=== PATIENT | male | born 1950 | race Caucasian/White ===

== ENCOUNTER 2020-02-07 01:42 | Outpatient (CLI) | payer MEDICARE, OTHER | END 2020-02-07 01:43 | disposition critical access hospital (66) | LOC: EMS 01:42 | PROVIDERS: ATTEND Surgery | DX: S01.112A Laceration without foreign body of left eyelid and periocular area, initial encounter (principal); R07.89 Other chest pain; R41.0 Disorientation, unspecified; W18.30XA Fall on same level, unspecified, initial encounter; Y92.003 Bedroom of unspecified non-institutional (private) residence as the place of occurrence of the external cause | CPT/HCPCS: A0425; A0429 ==

== ENCOUNTER 2020-02-07 02:03 | Observation (INO) | payer MEDICARE, OTHER ==
[2020-02-07] MEDS ORDERED: SODIUM CHLORIDE 0.9% 1,000 ML IV STA (02:19)
[2020-02-07] MEDS ORDERED: TETANUS/DIPHTHERIA/PERTUSSIS 0.5 ML SYRINGE IM ONE (02:22)
[2020-02-07] MEDS ORDERED: THIAMINE 100 MG TABLET PO STA (02:22)
--- NOTE | 2020-02-07 03:07 | ED Physician Documentation ---
PD HPI ALTERED MENTAL STATUS - Stated complaint Stated Complaint: SYNCOPE - Chief complaint Chief Complaint: Trauma Hd/Nk - History obtained from History obtained from: Patient, EMS - Additional information Additional information: 69-year-old man with past medical history of lung ca s/p R upper lobectomy and partial rib excision, high blood pressure, cholesterol, alcoholism presents with syncopal episode this evening. Patient was drinking alcohol and was last seen normal around 10PM when he went to bed. found him on the ground face down next to a glass of water.Patient states that he felt lightheaded and then thinks he passed out falling onto face. He is not on any blood thinners or anticoagulation. Patient has been behaving normally earlier in the day. Per EMS he is repeating himself and seems mildly confused although he is AO x3 in the ED. Patient complains of mild left-sided nonradiating aching chest pain. Review of Systems Ten Systems: 10 systems reviewed and negative Cardiac: reports: Chest pain / pressure Respiratory: reports: Dyspnea (chronic dyspnea) Skin: reports: Laceration (s) Neurologic: reports: Generalized weakness, Syncope. denies: Focal weakness PD PAST MEDICAL HISTORY - Present Medications Home Medications: Ambulatory Orders Medication Instructions Recorded Confirmed Home Medications Unobtainable 02/07/20 02/07/20 [HOME MEDICATIONS UNOBTAINABLE] - Allergies Allergies/Adverse Reactions: Allergies Allergy/AdvReac Type Severity Reaction Status Date / Time Unable to Assess Allergy Verified 02/07/20 03:12 PD ED PE NORMAL - Vitals Vital signs reviewed: Yes - General General: Alert and oriented X 3 (clinically intoxicated) - HEENT HEENT: Other (scattered facial abrasions. BL dried blood in nares without nasal septal hematoma. dentition intact. ) - Neck Neck: No bony TTP - Cardiac Cardiac: RRR - Respiratory Respiratory: No respiratory distress, Clear bilaterally - Abdomen Abdomen: Non tender, Non distended - Male Male : Deferred - Rectal Rectal: Deferred - Back Back: No spinal TTP - Derm Derm: Other (3cm lac to L browline) - Extremities Extremities: No deformity - Neuro Neuro: Alert and oriented X 3 - Psych Psych: Normal mood, Normal affect, Other (clinically intoxicated) Results - Vitals Vitals: Vital Signs - 24 hr 02/07/20 02/07/20 02/07/20 02:03 02:30 03:30 Temperature 36.4 C L 36.7 C Heart Rate 68 62 67 Respiratory 18 20 20 Rate Blood Pressure 146/83 H 141/85 H 136/81 H O2 Saturation 95 96 96 02/07/20 02/07/20 02/07/20 04:03 06:42 06:44 Temperature 36.4 C L 37.1 C Heart Rate 66 69 68 Respiratory 21 20 Rate Blood Pressure 136/81 H 130/71 O2 Saturation 97 98 93 02/07/20 02/07/20 06:45 06:46 Temperature Heart Rate 67 66 Respiratory 20 Rate Blood Pressure 136/81 H O2 Saturation 95 97 Oxygen O2 Source Room air - EKG (time done) 0209 Rate: Rate (enter#) (65) Rhythm: NSR Intervals: LBBB (old lbbb per patient and ems report) 0445 Rate: Rate (enter#) (65) Rhythm: NSR Compare to prior EKG: Unchanged from prior EKG (unchanged from ekg earlier this mronig) - Labs Labs: Laboratory Tests 02/07/20 02/07/20 02/07/20 04:10 04:10 04:10 WBC 4.3 L RBC 4.08 L Hgb 13.5 L Hct 37.7 L MCV 92.4 MCH 33.1 H MCHC 35.8 RDW 11.5 L Plt Count 210 MPV 9.2 Neut # (Auto) 2.9 Lymph # (Auto) 1.0 L [place] # (Auto) 0.4 Eos # (Auto) 0.0 Baso # (Auto) 0.0 Absolute Nucleated RBC 0.00 Nucleated RBC % 0.0 Sodium 135 Potassium 3.3 L Chloride 101 Carbon Dioxide 22 Anion Gap 12.0 BUN 18 Creatinine 1.1 Estimated GFR (MDRD) 66 L Glucose 140 H Calcium 8.5 Total Bilirubin 0.8 AST 66 H ALT 67 H Alkaline Phosphatase 62 Troponin I High Sens 7.2 Total Protein 7.2 Albumin 4.3 Globulin 2.9 Albumin/Globulin Ratio 1.5 Lipase 43 Ethyl Alcohol 250.6 SARS-CoV-2 (PCR) 02/07/20 04:37 WBC RBC Hgb Hct MCV MCH MCHC RDW Plt Count MPV Neut # (Auto) Lymph # (Auto) [place] # (Auto) Eos # (Auto) Baso # (Auto) Absolute Nucleated RBC Nucleated RBC % Sodium Potassium Chloride Carbon Dioxide Anion Gap BUN Creatinine Estimated GFR (MDRD) Glucose Calcium Total Bilirubin AST ALT Alkaline Phosphatase Troponin I High Sens Total Protein Albumin Globulin Albumin/Globulin Ratio Lipase Ethyl Alcohol SARS-CoV-2 (PCR) NOT DETECTED PD MEDICAL DECISION MAKING - ED course Complexity details: d/w patient, d/w family ED course: 69-year-old man with past medical history of right lobectomy Presents status post syncopal episode this past evening without preceding symptoms, Found to have no acute changes on EKG, nonfocal lab work, traumatic work-up with isolated nasal bone fracture. On clinical reexamination he has subcutaneous emphysema on the left anterior chest wall as well as tenderness along the lower rib. plan to admit for pain control, cardiac monitoring, and echo on saturday. discussed with patient, , and hospitalist. Note: hospitalist requested we contact cardiology at [facility] where patient has previously followed up. He had holter monitoring recently showing frequent pvcs and old lbbb. per operations specialists toby maker Dr. Robert, patient may benefit from a holter monitor. this may possibly be done inpatient or outpatient. discussed possibility of transfer with patient and he refused, stating he would prefer to be monitored here and follow up outpatient for cardiology eval. Departure - Departure Disposition: 66 [facility] DC/Xfer Clinical Impression: Syncope and collapse, Nasal bone fracture, Chest pain
[2020-02-07] MEDS ORDERED: IOVERSOL 320 100 ML VIAL IVP ONE ×2 (03:25→03:35)
[2020-02-07] MEDS: BUFFERED LIDOCAINE 10 ML SYRINGE SUBQ STA ×2 (03:45→06:38)
[2020-02-07] MEDS ORDERED: MORPHINE 2 MG/ML CARPUJECT IVP STA ×3 (03:50→05:50)
[2020-02-07 04:19] LABS: BASOPHILS % (AUTO) 0.2 %; EOSINOPHILS % (AUTO) 0.9 %; HGB - HEMOGLOBIN 13.5 g/dL (14.0-18.0); LYMPHOCYTES % (AUTO) 22.3 %; MEAN CORPUSCULAR HEMOGLOBIN 33.1 pg (27.0-31.0); MEAN CORPUSCULAR HGB CONC 35.8 g/dL (32.0-36.0); MEAN CORPUSCULAR VOLUME 92.4 fL (80.0-94.0); MEAN PLATELET VOLUME 9.2 fL (7.4-11.4); MONOCYTES # (AUTO) 0.4 10^3/uL (0.0-1.0); MONOCYTES % (AUTO) 9.2 %; NEUTROPHILS # (AUTO) 2.9 10^3/uL (1.5-6.6); NEUTROPHILS % (AUTO) 66.9 %; PLT - PLATELET COUNT 210 10^3/uL (130-450); RED BLOOD COUNT 4.08 10^6/uL (4.70-6.10); RED CELL DISTRIBUTION WIDTH 11.5 % (12.0-15.0); WHITE BLOOD COUNT 4.3 x10^3/uL (4.8-10.8)
[2020-02-07 04:36] LABS: ALBUMIN 4.3 g/dL (3.2-5.5); ALBUMIN/GLOBULIN RATIO 1.5 (1.0-2.2); BILIRUBIN,TOTAL 0.8 mg/dL (0.2-1.0); CALCIUM 8.5 mg/dL (8.5-10.3); CREATININE 1.1 mg/dL (0.6-1.2); TOTAL PROTEIN 7.2 g/dL (6.7-8.2)
[2020-02-07] MEDS ORDERED: ASPIRIN 325 MG TABLET PO STA (04:44)
[2020-02-07] MEDS: HYDROmorphone 1 MG/ML CARPUJECT IVP STA ×2 (05:19→05:55)
--- NOTE | 2020-02-07 07:47 | CT Report ---
PROCEDURE: HEAD WO INDICATIONS: Head trauma, mod-severe TECHNIQUE: Noncontrast 4.5 mm thick angled axial sections acquired from the foramen magnum to the vertex. For r adiation dose reduction, the following was used: automated exposure control, adjustment of mA and/or kV according to patient size. COMPARISON: None. FINDINGS: Image quality: Excellent. CSF spaces: Basal cisterns are patent. No extra-axial fluid collections. Ventricles are normal in size and shape. Brain: No midline shift. No intracranial masses or hemorrhage. [place]-white matter interface is norm al. Skull and face: Calvarium is intact, without suspicious lesions. Subtle nondisplaced lateral left ma xillary sinus wall fracture. There is layering hemorrhagic products within the left maxillary sinus. Sinuses: Layering fluid in the left maxillary sinus with likely hemorrhagic component. Remainder of the visualized paranasal sinuses and mastoids are clear. IMPRESSION: 1. CT head without acute intracranial abnormalities. 2. Nondisplaced left maxillary sinus lateral wall fracture with layering hemorrhagic fluid in the lef t maxillary sinus. No significant discrepancy with initial interpretation by overnight radiologist. Reviewed by: Flavio Story MD on 02/07/2020 6:46 AM [facility] Approved by: Flavio Story MD on 02/07/2020 6:46 AM [facility] [place] Station ID: [id number]
--- NOTE | 2020-02-07 07:49 | CT Report ---
PROCEDURE: MAXILLOFACIAL WO INDICATIONS: Facial trauma TECHNIQUE: Noncontrast 1.5 mm thick axial images acquired from the mandible through the frontal sinuses, with co boyd and sagittal reformatting. For radiation dose reduction, the following was used: automated ex posure control, adjustment of mA and/or kV according to patient size. COMPARISON: None. FINDINGS: Image quality: Excellent. Bones and teeth: Orbital orr are intact. Nondisplaced lateral fracture of the left maxillary sinus . Remainder of the visualized paranasal sinuses appear intact without acute fracture. Nasal bones and septum are intact. Visualized portions of the mandible demonstrate no fractures or subluxation. Zy gomatic arches are intact. Pterygoid plates are intact. Visualized portions of the skull base and a uditory canals are intact. Sinuses: Layering fluid is noted in the left maxillary sinus. Remainder of the visualized paranasal s inuses are aerated, without fluid levels, mucosal thickening, or mucoceles. Mastoid air cells are ae rated. Soft tissues: Mild left facial soft tissue swelling. No masses, or fluid collections. No enlarged l ymph nodes. No soft tissue lacerations or debris. Orbits and globes appear intact. Vascular: Visualized vascular structures appear normal in the absence of contrast. Bony vascular fo ramina and canals are intact. IMPRESSION: Nondisplaced left maxillary sinus lateral wall fracture. No significant discrepancy with initial interpretation by overnight radiologist. Reviewed by: Flavio Story MD on 02/07/2020 6:48 AM [facility] Approved by: Flavio Story MD on 02/07/2020 6:48 AM [facility] Station ID: [id number]
--- NOTE | 2020-02-07 07:53 | CT Report ---
PROCEDURE: CERVICAL SPINE WO INDICATIONS: Neck trauma, midline tenderness TECHNIQUE: Noncontrast 3 mm thick sections acquired from the skull base to the T4 level. Sagittal and coronal r eformats were then constructed. For radiation dose reduction, the following was used: automated exp osure control, adjustment of mA and/or kV according to patient size. COMPARISON: None. FINDINGS: Image quality: Study is degraded by patient motion artifact. Bones: No acute fractures or dislocations. No acute compression fractures of the vertebral bodies. M oderate multilevel cervical spondylosis throughout the imaged spine most pronounced at C6-7 and C7-T1 . Visualized superior ribs are intact. No suspicious osseous lesions. Craniocervical junction is int act. Soft tissues: Prevertebral soft tissues are normal in thickness. No paravertebral hematomas. No ap ical pneumothoraces. IMPRESSION: Cervical spine without acute fracture or dislocation. Multilevel cervical spondylosis most pronounced at C6-7 and C7-T1. No significant discrepancy with initial interpretation by overnight radiologist. Reviewed by: Flavio Story MD on 02/07/2020 6:51 AM [facility] Approved by: Flavio Story MD on 02/07/2020 6:51 AM [facility] Station ID: [id number]
--- NOTE | 2020-02-07 07:55 | XRAY Report ---
PROCEDURE: Chest 1 View X-Ray INDICATIONS: fall TECHNIQUE: One view of the chest was acquired. COMPARISON: None FINDINGS: Surgical changes and devices: Surgical clips project near the right perihilar region. Thoracic neuros timulator leads are noted.. Lungs and pleura: No pleural effusions or pneumothorax. Lungs are clear. Mediastinum: Mediastinal contours appear normal. Heart size is normal. Bones and chest wall: No suspicious bony lesions. Overlying soft tissues appear unremarkable. IMPRESSION: Chest without acute cardiopulmonary abnormalities. No significant discrepancy with initial interpretation by overnight radiologist. Reviewed by: Flavio Story MD on 02/07/2020 6:54 AM [facility] Approved by: Flavio Story MD on 02/07/2020 6:54 AM [facility] Station ID: [id number]
--- NOTE | 2020-02-07 08:00 | HISTORY & PHYSICAL EXAMINATION ---
Chief Complaint - Chief Complaint Chief Complaint: Syncope History of Present Illness - Admitted From Admitted From:: [facility] ED - History Obtained From Records Reviewed: Yes History obtained from: Patient - History of Present Illness HPI Comment/Other: Patient is a 69-year-old male with medical history significant for coronary artery disease, hypertension, peripheral vascular disease, hyperlipidemia, GERD, restless leg syndrome and obstructive sleep apnea on BiPAP at home who presented to the ED after a syncopal episode. He was brought in by EMS after his called 911. He does not remember the incident. He denied any dizziness or lightheadedness prior to the episode. He has a left periorbital bruise as a result of his fall and a superficial laceration just above the left eye. Currently he complains of left sided pain which is musculoskeletal and reproducible. He reports worsening pain with inhalation. He denies abdominal pain, nausea, vomiting, fever or chills. Work-up in the ED showed an alcohol level of 205. The patient's troponin was normal at 7.2. In talking with the patient's she explains that the patient had been drinking before the episode. She says he was celebrating. Is unclear what the celebration was about As a result of his presentation was presented for admission for further monitoring and pain management. In talking with the patient I am informed that he sees cardiologists by name Dr. Narvaez and an coin machine supervisor by name Dr. Dao Thao in [place]. He states that he recently had an echocardiogram done in the past 1 to 2 weeks. He reports having ZIO Patch monitor. Upon reaching Dr. Robert who was covering for his cardiology service, she explained that the reading from the ZIO patch was done a month ago. The patient was not wearing a monitor at the time of his incident last night. He has never had a syncopal episode before this presentation. On further investigation it appears he had seen the coin machine supervisor because of frequent PVCs. History - Past Medical History Cardiovascular: reports: Hypertension, High cholesterol, Coronary artery disease, Peripheral Vascular Disease Respiratory: reports: COPD, Sleep apnea (On BiPAP at home) Neuro: reports: Other (Restless leg syndrome) Psych: reports: Depression, Anxiety Musculoskeletal: reports: Fibromyalgia, Chronic back pain MRSA Hx?: No Other Past Medical History: Right femoral artery stenosis, history of lung cancer with right upper lobe partial lobectomy, LBBB, - Past Surgical History Cardiovascular: reports: Cardiac catheterization Other past surgical history: History of a right partial lobectomy. Spinal cord stimulator, right ribs 5 and 6 removed, vasectomy - Family & Social History Family History Comment/Other: Patient's father had diabetes and unspecified cardiac disease. Patient's mother's history is significant for cardiac disease unspecified. Patient sister had CVA and diabetes mellitus. Patient had 2 brothers who had high blood pressure and diabetes mellitus. Living arrangement: At home Living Situation: With spouse/s.o. Social History Notes: Patient denies tobacco use. He smoked about 1-1/2 packs of cigarettes a day for 40 years. He quit in 2005. He drinks anywhere between 2-5 drinks of vodka daily. He denied illicit drug use - POLST Patient has POLST: No POLST Status: Full Code Meds/Allgy - Home Medications Home Medications: Ambulatory Orders Medication Instructions Recorded Confirmed Amlodipine Besylate [Norvasc] 10 mg PO DAILY 02/07/20 02/07/20 Aspirin [Aspirin EC] 81 mg PO DAILY 02/07/20 02/07/20 Atorvastatin Calcium 40 mg PO QPM 02/07/20 02/07/20 Azelastine HCl 1 - 2 sprays FIDENCIO BID 02/07/20 02/07/20 Cholecalciferol [Vitamin D3] 5,000 unit PO DAILY 02/07/20 02/07/20 Finasteride [Proscar] 5 mg PO DAILY 02/07/20 02/07/20 Finasteride [Proscar] 5 mg PO DAILY 02/07/20 02/07/20 Fluticasone [Flonase] 2 spray FIDENCIO DAILY 02/07/20 02/07/20 Loratadine [Claritin] 10 mg PO DAILY 02/07/20 02/07/20 Losartan Potassium [Cozaar] 100 mg PO DAILY 02/07/20 02/07/20 Metoprolol Succinate [Toprol Xl] 50 mg PO BID 02/07/20 02/07/20 Montelukast [Singulair] 10 mg PO QPM 02/07/20 02/07/20 Omeprazole Magnesium 20 mg PO QDAC 02/07/20 02/07/20 Potassium Chloride [Klor-Con 10] 10 meq PO BIDWM 02/07/20 02/07/20 Pramipexole [Mirapex] 0.25 mg PO BID 02/07/20 02/07/20 Tamsulosin [Flomax] 0.4 mg PO BID 02/07/20 02/07/20 Tiotropium Br/Olodaterol HCl 2 puffs INH DAILY 02/07/20 02/07/20 [Stiolto Respimat Inhal [place]] Torsemide 20 mg PO DAILY 02/07/20 02/07/20 guaiFENesin [Mucinex] 400 mg PO BID 02/07/20 02/07/20 - Allergies Allergies/Adverse Reactions: Allergies Allergy/AdvReac Type Severity Reaction Status Date / Time ampicillin Allergy Unknown Verified 02/07/20 11:14 hydralazine Allergy Unknown Verified 02/07/20 11:18 ketoconazole Allergy Unknown Verified 02/07/20 11:18 modafinil Allergy Unknown Verified 02/07/20 11:18 niacin Allergy Unknown Verified 02/07/20 11:18 Penicillins Allergy Unknown Verified 02/07/20 11:14 sulfamethoxazole Allergy Unknown Verified 02/07/20 11:18 [From Sulfamethoxazole-Trimethoprim] trimethoprim Allergy Unknown Verified 02/07/20 11:18 [From Sulfamethoxazole-Trimethoprim] SHERIDAN Inhibitors AdvReac Respiratory Verified 02/07/20 11:18 Review of Systems - Constitutional Constitutional: denies: Fatigue, Fever, Chills, Diaphoresis, Night sweats - Eyes Eyes: reports: Pain, Other (Left periorbital bruise). denies: Field loss, Vision loss, Dipolpia - Ears, Nose & Throat Ears, Nose & Throat: denies: Ear pain, Vertigo, Nasal pain - Cardiovascular Cariovascular: reports: Syncope. denies: Irregular heart rate, Palpitations, Chest pain, Edema, Lightheadedness - Respiratory Respiratory: denies: Cough, Wheezing, SOB at rest, SOB with exertion - Gastrointestinal Gastrointestinal: denies: Abdominal pain, Abdominal distention, Constipation, Diarrhea, Nausea, Vomiting - Genitourinary Genitourinary: denies: Dysuria, Frequency, Urgency, Hematuria - Musculoskeletal Musculoskeletal: denies: Muscle pain, Back pain - Integumentary Integumentary: denies: Rash, Pruritis - Neurological Neurological: denies: General weakness, Focal weakness, Headache, Dizziness - Psychiatric Psychiatric: denies: Depression, Anxiety - Endocrine Endocrine: denies: Polyuria, Polydypsia - Hematologic/Lymphatic Hematologic/Lymphatic: denies: Anemia, Bruising, Petechiae Prior Level of Functionality: Patient is independent of activities of daily living. Exam - Vital Signs Vital Signs: Vital Signs x48h Temp Pulse Resp BP Pulse Ox 02/07/20 07:00 37.3 C 74 17 122/66 94 02/07/20 06:46 66 20 136/81 H 97 02/07/20 06:45 67 95 02/07/20 06:44 68 93 02/07/20 06:42 37.1 C 69 20 130/71 98 02/07/20 04:03 36.4 C L 66 21 136/81 H 97 02/07/20 03:30 67 20 136/81 H 96 02/07/20 02:30 36.7 C 62 20 141/85 H 96 02/07/20 02:03 36.4 C L 68 18 146/83 H 95 - Physical Exam General Appearance: positive: Moderate distress Eyes Bilateral: positive: PERRL, EOMI, Other (LSuperficialaceration just superior to patient's left eye. Patient has left periorbital bruising.) ENT: positive: Pharynx nml. negative: No signs of dehydration Neck: negative: No JVD, Trachea midline Respiratory: positive: Other (Coarse breath sounds. Pain with inspiration.) Cardiovascular: positive: Regular rate & rhythm, No murmur Abdomen: positive: Non-tender, No organomegaly, Nml bowel sounds, No distention. negative: Guarding, Rebound Skin: positive: Color nml, No rash, Warm, Dry Extremities: positive: Non-tender, Full ROM, Pedal edema (Trace to +1) Neurologic/Psychiatric: positive: Oriented x3, Mood/affect nml Conclusion/Plan - Problem List (1) Syncope and collapse Conclusion/Plan: Etiology undetermined however suspect a cardiac cause Patient supposedly has a Zio patch. He also sees electrophysiology and general cardiology services at [place]. The patient is currently on telemetry. He is not experiencing any typical cardiac pain or dyspnea Patient reports having an echocardiogram done in the past 1 to 2 weeks. I discussed with Dr. Robert who is covering for the cardiology service [place] [facility] [place] She explained that the patient was on the Zio patch for 1 week a month ago and was not wearing one yesterday when he had the syncopal episode. She was also agreeable to fax out any at the current echocardiogram results. Dr. Robert had earlier recommended that the patient be transferred to [facility] from the ED. However after discussion with the patient and explaining the importance of him being transferred, he expressed understanding but declined to be transferred. He kept repeating that he will address this the following day. (2) Musculoskeletal pain Conclusion/Plan: Of the left 5-7 rib area. There was significant crepitus felt in this area however imaging which has been a CT so far has not shown any fracture. We will repeat imaging with focused x-ray of the ribs. We will continue pain management with morphine and oral Toradol. Charles declined Dilaudid because he explains that he had an unspecified reaction to it. Incentive spirometer ordered. (3) Coronary artery disease Conclusion/Plan: Patient is on Metroprolol XL 50 mg daily, baby aspirin, atorvastatin 40 mg daily and losartan. (4) Hypertension Conclusion/Plan: Patient is on metoprolol, losartan and torsemide. (5) Hyperlipidemia Conclusion/Plan: On atorvastatin 40 mg p.o. daily. (6) BPH (benign prostatic hyperplasia) Conclusion/Plan: On tamsulosin 0.4 mg p.o. twice daily And finasteride 5 mg p.o. daily (7) COPD (chronic obstructive pulmonary disease) Conclusion/Plan: Not in exacerbation. Will order breathing treatment if and when indicated - Lab Results Fish Bones: 02/07/20 04:10 02/07/20 04:10 Core Measures - Anticipated LOS I expect patient to be DC'd or transferred within 96 hours.: Yes - DVT/VTE - Prophylaxis VTE/DVT Device ordered at admit?: Yes
--- NOTE | 2020-02-07 08:02 | CT Report ---
PROCEDURE: CHEST W INDICATIONS: Chest trauma, penetrating CONTRAST: IV CONTRAST: Optiray 320 ml: 100 PO CONTRAST: *NO PO CONTRAST TECHNIQUE: After the administration of intravenous contrast, 5 mm thick sections acquired from the pulmonary api billy to the posterior costophrenic angles. 7 mm thick coronal MIP reformats were acquired. For radia tion dose reduction, the following was used: automated exposure control, adjustment of mA and/or kV according to patient size. COMPARISON: None. FINDINGS: Image quality: Excellent. Lungs and pleura: Status post right upper lobectomy. No acute air space opacities. Mild bibasilar at electasis. Mild pulmonary emphysematous changes. No pleural effusions or pneumothorax. Central and p eripheral airways are patent and normal in caliber. Mediastinum: Heart size is normal. Atherosclerotic calcifications of the coronary arteries are prese nt. No pericardial effusion. No mediastinal or hilar adenopathy by size criteria. Thoracic aorta an d central pulmonary arteries are normal in size. Esophagus is normal in caliber. No hiatal hernia. Bones and chest wall: No suspicious bony lesions. No acute vertebral body compression fractures. N o axillary or supraclavicular adenopathy by size criteria. Thyroid gland is unremarkable. Minimal b ilateral gynecomastia. Neurostimulator lead extend up to the level of T5. Abdomen: Hepatic steatosis. Visualized upper abdominal solid organs appear normal. Upper abdominal bowel loops are normal in caliber. IMPRESSION: 1. CT chest without acute traumatic injuries. No acute cardiopulmonary abnormalities. 2. No acute fractures identified. Other chronic findings as above. No significant discrepancy with initial interpretation by overnight radiologist. Reviewed by: Flavio Story MD on 02/07/2020 7:01 AM [facility] Approved by: Flavio Story MD on 02/07/2020 7:01 AM [facility] Station ID: [id number]
--- NOTE | 2020-02-07 08:07 | CT Report ---
PROCEDURE: Abdomen/Pelvis W INDICATIONS: Abdominal trauma, blunt CONTRAST: IV CONTRAST: Optiray 320 ml: 100 PO CONTRAST: *NO PO CONTRAST TECHNIQUE: After the administration of weight appropriate dose of intravenous contrast, 5 mm thick sections acqu ired from the diaphragms to the symphysis. 5 mm thick coronal and sagittal reformats were acquired. For radiation dose reduction, the following was used: automated exposure control, adjustment of mA and/or kV according to patient size. COMPARISON: None. FINDINGS: Image quality: Excellent. ABDOMEN: Lung bases: Lung bases are clear. Heart size is normal. Solid organs: Liver and spleen are normal in size and enhancement. Hepatic steatosis. Gallbladder is unremarkable. Biliary system is non dilated. Pancreas enhances normally. No adrenal nodules. Kid neys demonstrate normal size and enhancement, without hydronephrosis. Peritoneum and bowel: Bowel loops demonstrate normal wall thickness and caliber. No free fluid or a ir. Normal appendix. Nodes and vessels: No retroperitoneal or mesenteric adenopathy by size criteria. Aorta and inferior vena cava are normal in size. Atherosclerotic calcifications of the abdominal aorta are present. Miscellaneous: No ventral hernias. PELVIS: Genitourinary: Bladder wall thickness is normal. Urinary bladder is distended. Large left hydrocele . Miscellaneous: No inguinal hernias or adenopathy. Bones: No suspicious bony lesions. No acute vertebral body compression fractures. IMPRESSION: 1. CT abdomen and pelvis without acute traumatic injury to the solid or hollow organs. 2. Other chronic findings as above. No significant discrepancy with initial interpretation by overnight radiologist. Reviewed by: Flavio Story MD on 02/07/2020 7:06 AM [facility] Approved by: Flavio Story MD on 02/07/2020 7:06 AM [facility] Station ID: [id number]
--- NOTE | 2020-02-07 08:08 | XRAY Report ---
PROCEDURE: Pelvis 1 View INDICATIONS: fall TECHNIQUE: 3 view(s) of the pelvis acquired. COMPARISON: None. FINDINGS: Bones: No fractures or dislocations. No suspicious bony lesions. Soft tissues: Visualized bowel gas pattern is normal. No suspicious soft tissue calcifications. Bozena rostimulator device projects over the left lower abdomen. IMPRESSION: Pelvis without acute radiographic abnormalities. No significant discrepancy with initial interpretation by overnight radiologist. Reviewed by: Flavio Story MD on 02/07/2020 7:07 AM [facility] Approved by: Flavio Story MD on 02/07/2020 7:07 AM [facility] Station ID: [id number]
--- NOTE | 2020-02-07 09:18 | XRAY Report ---
PROCEDURE: Ribs 2 View LT INDICATIONS: Fall L subcut emphysema TECHNIQUE: 4 views of the left ribs were acquired. COMPARISON: CT chest from earlier same day FINDINGS: Surgical changes and devices: None. Bones and chest wall: No fractures or dislocations. No suspicious bony lesions. Overlying soft tis sues appear unremarkable. No radiographic evidence for subcutaneous emphysema. Lungs and pleura: The visualized lung appears clear. No pleural effusions or pneumothorax are visib le. IMPRESSION: No acute rib fractures identified. No evidence for subcutaneous emphysema. Reviewed by: Flavio Story MD on 02/07/2020 8:16 AM [facility] Approved by: Flavio Story MD on 02/07/2020 8:16 AM [facility] Station ID: [id number]
--- NOTE | 2020-02-07 09:22 | PHARMACY PROGRESS NOTE ---
- Best Possible Medication History Admit Date and Time: 02/07/20 0755 Processed by: Pharmacy Medication History completed: Yes Patient Interview: Pt unable to participate Secondary Source(s): Pharmacy records, Insurance records As the person ultimately responsible for medication therapy, providers are able to order a medication from an existing home medication list in [facility] via the "Reconcile Routine" prior to Confirmation of that medication by legal support analyst. Such practice is discouraged except when the physician, in their clinical judgment, deems that a medical need exists for a medication without regard to previous use.
--- NOTE | 2020-02-07 10:26 | CONSULTATION NOTE ---
Referring Provider Name of Referring Provider:: Ting Richter Consult Date: 02/07/20 Chief Complaint - Chief Complaint Chief Complaint: Fall with left eye laceration and ecchymosis and left chest wall pain History of Present Illness - Admitted From Admitted From:: ED - History Obtained From Records Reviewed: Provider's notes History obtained from: Providers and patient Exam Limitations: None - History of Present Illness HPI Comment/Other: ajay is a 69-year-old male with medical history significant for coronary artery disease, hypertension, peripheral vascular disease, hyperlipidemia, GERD, restless leg syndrome and obstructive sleep apnea on BiPAP at home who presented to the ED after a syncopal episode. He was brought in by EMS after his called 911. He does not remember the incident. He denied any dizziness or lightheadedness prior to the episode. He has a left periorbital bruise as a result of his fall and a superficial laceration just above the left eye. Currently he complains of left sided pain which is musculoskeletal and reproduc ible. He reports worsening pain with inhalation. He denies abdominal pain, nausea, vomiting, fever or chills. Work-up in the ED showed an alcohol level of 205. The patient's troponin was normal at 7.2. In talking with the patient's she explains that the patient had been drinking before the episode and also that he was significantly upset. She seems to allude to the fact that it may have been related with recent elections. As a result of his presentation was presented for admission for further monitoring and pain management. The patient is complaining of left sided rib pain. He says he always has right sided rib pain that is associated with his spinal cord stimulator but the left sided rib pain is new. As he doesn't remember the incident, he doesn't know if he hit his left chest during the fall. Pain is described as sharp with deep inspiration and otherwise just a constant ache. History - Past Medical History Cardiovascular: reports: Hypertension, High cholesterol, Peripheral Vascular Disease Respiratory: reports: Sleep apnea (On BiPAP at home) Neuro: reports: Other (Restless leg syndrome) MRSA Hx?: No Other Past Medical History: Right femoral artery stenosis, history of lung cancer with right upper lobe partial lobectomy, LBBB, - Past Surgical History Other past surgical history: History of a right partial lobectomy. Spinal cord stimulator, right ribs 5 and 6 removed, vasectomy - Family & Social History Family History Comment/Other: Patient's father had diabetes and unspecified cardiac disease. Patient's mother's history is significant for cardiac disease unspecified. Patient sister had CVA and diabetes mellitus. Patient had 2 brothers who had high blood pressure and diabetes mellitus. Living arrangement: At home Living Situation: With spouse/s.o. Social History Notes: Patient denies tobacco use. He drinks anywhere between 2- 5 drinks of vodka daily. He denied illicit drug use - POLST Patient has POLST: No POLST Status: Full Code Meds/Allgy - Home Medications Home Medications: Ambulatory Orders Medication Instructions Recorded Confirmed Amlodipine Besylate [Norvasc] 10 mg PO DAILY 02/07/20 02/07/20 Atorvastatin Calcium 40 mg PO QPM 02/07/20 02/07/20 Finasteride [Proscar] 5 mg PO DAILY 02/07/20 02/07/20 Fluticasone [Flonase] 2 spray FIDENCIO DAILY 02/07/20 02/07/20 Loratadine [Claritin] 10 mg PO DAILY 02/07/20 02/07/20 Losartan Potassium [Cozaar] 100 mg PO DAILY 02/07/20 02/07/20 Metoprolol Succinate [Toprol Xl] 50 mg PO BID 02/07/20 02/07/20 Montelukast [Singulair] 10 mg PO QPM 02/07/20 02/07/20 Omeprazole Magnesium 20 mg PO QDAC 02/07/20 02/07/20 Potassium Chloride [Klor-Con 10] 10 meq PO BIDWM 02/07/20 02/07/20 Pramipexole [Mirapex] 0.5 mg PO QPM 02/07/20 02/07/20 Tamsulosin [Flomax] 0.4 mg PO BID 02/07/20 02/07/20 Torsemide 20 mg PO DAILY 02/07/20 02/07/20 - Allergies Allergies/Adverse Reactions: Allergies Allergy/AdvReac Type Severity Reaction Status Date / Time Unable to Assess Allergy Verified 02/07/20 03:12 Review of Systems - Constitutional Constitutional: reports: Fatigue, Fever - Eyes Eyes: reports: Pain (Left eye and eye brow) - Ears, Nose & Throat Ears, Nose & Throat: denies: Ear pain, Hearing loss, Tinnitus, Vertigo - Cardiovascular Cariovascular: denies: Chest pain, Lightheadedness - Respiratory Respiratory: denies: Cough, Sputum production, Wheezing - Gastrointestinal Gastrointestinal: denies: Abdominal pain, Abdominal distention, Constipation, Diarrhea, Change in bowel habits, Black stools, Bloody stools, Nausea, Vomiting - Musculoskeletal Musculoskeletal: reports: Muscle pain, Back pain, Joint pain - Integumentary Integumentary: denies: Rash, Lesions - Neurological Neurological: denies: General weakness, Focal weakness - Psychiatric Psychiatric: reports: Anxiety (Upset about recent elections) Exam - Vital Signs Reviewed Vital Signs: Yes Vital Signs: Vital Signs x48h Temp Pulse Pulse Resp BP BP Pulse Ox 02/07/20 08:56 37.0 C 74 20 150/74 H 94 02/07/20 07:00 37.3 C 74 17 122/66 94 02/07/20 06:46 66 20 136/81 H 97 02/07/20 06:45 67 95 02/07/20 06:44 68 93 02/07/20 06:42 37.1 C 69 20 130/71 98 02/07/20 04:03 36.4 C L 66 21 136/81 H 97 02/07/20 03:30 67 20 136/81 H 96 02/07/20 02:30 36.7 C 62 20 141/85 H 96 - Physical Exam General Appearance: positive: No acute distress, Alert Eyes Bilateral: positive: Conjunctivae nml, No scleral icterus, Other (Ecchymosis around the left orbit.) ENT: positive: ENT inspection nml Neck: positive: Nml inspection Respiratory: positive: Breath sounds nml, Other (Tender to palpation over the left anterior rib margin. No visible bruising. No crepitance or popping with deep inspiration.) Cardiovascular: positive: Regular rate & rhythm Peripheral Pulses: positive: 0 Abdomen: positive: Tenderness (Moderated left upper quadrant tenderness to palpation but without rebound). negative: Guarding, Rebound Back: positive: CVA tenderness (R) (Patient reports this is normal for him), CVA tenderness (L) Skin: positive: Laceration (cm) (left eyebrow - small and approximated with steri strips) Extremities: positive: Non-tender Neurologic/Psychiatric: positive: Oriented x3 Conclusion and Plan - Lab Results Laboratory Results 02/07/20 04:37: SARS-CoV-2 (PCR) NOT DETECTED 02/07/20 04:10: Troponin I High Sens 7.2 02/07/20 04:10: Sodium 135, Potassium 3.3 L, Chloride 101, Carbon Dioxide 22, Anion Gap 12.0, BUN 18, Creatinine 1.1, Estimated GFR (MDRD) 66 L, Glucose 140 H, Calcium 8.5, Total Bilirubin 0.8, AST 66 H, ALT 67 H, Alkaline Phosphatase 62, Total Protein 7.2, Albumin 4.3, Globulin 2.9, Albumin/Globulin Ratio 1.5, Lipase 43, Ethyl Alcohol 250.6 02/07/20 04:10: WBC 4.3 L, RBC 4.08 L, Hgb 13.5 L, Hct 37.7 L, MCV 92.4, MCH 33.1 H, MCHC 35.8, RDW 11.5 L, Plt Count 210, MPV 9.2, Neut # (Auto) 2.9, Lymph # (Auto) 1.0 L, Bill[place] # (Auto) 0.4, Eos # (Auto) 0.0, Baso # (Auto) 0.0, Absolute Nucleated RBC 0.00, Nucleated RBC % 0.0 - Diagnostic Imaging Results Diagnostic Imaging Results: positive: Final report reviewed - Diagnosis Diagnosis: left rib hematoma - possible non displaced fracture - Plan Plan: This should resolve with time. The patient may be helped with topical Diclofenac to the area or with a lidocaine patch. I'm happy to be available for any other concerns or problems.
[2020-02-07] MEDS: SODIUM CHLORIDE FLUSH 0.9% 10 ML SYRINGE IVP PRN (10:30)
[2020-02-07] MEDS: KETOROLAC 15 MG/ML VIAL IVP PRN ×2 (10:30→15:55)
[2020-02-07] MEDS: SODIUM CHLORIDE FLUSH 0.9% 10 ML SYRINGE IVP SCH ×2 (10:30→17:26)
[2020-02-07 11:41] LABS: MUDS CUTOFF CONCENTRATIONS CUTOFF CONC BELOW:
[2020-02-07] MEDS ORDERED: LORazepam 2 MG/ML VIAL IVP PRN (11:47)
[2020-02-07 12:01] LABS: AMPHETAMINE SCREEN,URINE NEGATIVE (NEGATIVE); BENZODIAZEPINES SCREEN, URINE NEGATIVE (NEGATIVE); COCAINE SCREEN URINE NEGATIVE (NEGATIVE); METHADONE SCREEN, URINE NEGATIVE (NEGATIVE); METHAMPHETAMINES SCREEN, URINE NEGATIVE (NEGATIVE); OPIATE SCREEN, URINE POSITIVE (NEGATIVE); OXYCODONE SCREEN, URINE NEGATIVE (NEGATIVE); PROPOXYPHENE SCREEN, URINE NEGATIVE (NEGATIVE); TRICYCLIC ANTIDEPRESSANT,URINE NEGATIVE (NEGATIVE)
[2020-02-07 12:52] LABS: INR 1.2 (0.8-1.2); PT - PROTHROMBIN TIME 13.2 secs (9.9-12.6)
[2020-02-07] MEDS: LIDOCAINE PATCH 5% TOP SCH (13:25)
[2020-02-07] MEDS: guaiFENesin 600 MG TABLET PO SCH ×2 (13:26→20:00)
[2020-02-07] MEDS: POTASSIUM CHLORIDE 10 MEQ CAPSULE PO SCH (17:25)
[2020-02-07] MEDS: METOPROLOL SUCCINATE 50 MG TABLET PO SCH (20:00)
[2020-02-07] MEDS: PRAMIPEXOLE 0.25 MG TABLET PO SCH (20:00)
[2020-02-07] MEDS: TAMSULOSIN 0.4 MG CAPSULE PO SCH (20:00)
[2020-02-07] MEDS ORDERED: MONTELUKAST 10 MG TABLET PO SCH (21:00)
[2020-02-07] MEDS ORDERED: ATORVASTATIN 40 MG TABLET PO SCH (21:00)
[2020-02-08] MEDS: MORPHINE 2 MG/ML CARPUJECT IVP PRN ×3 (00:07→09:06)
[2020-02-08] MEDS: SODIUM CHLORIDE FLUSH 0.9% 10 ML SYRINGE IVP SCH ×2 (00:08→09:09)
[2020-02-08] MEDS: SODIUM CHLORIDE FLUSH 0.9% 10 ML SYRINGE IVP PRN (04:50)
[2020-02-08 05:21] LABS: BASOPHILS % (AUTO) 0.3 %; EOSINOPHILS # (AUTO) 0.1 10^3/uL (0.0-0.7); EOSINOPHILS % (AUTO) 0.8 %; HGB - HEMOGLOBIN 13.5 g/dL (14.0-18.0); LYMPHOCYTES # (AUTO) 1.2 10^3/uL (1.5-3.5); LYMPHOCYTES % (AUTO) 14.9 %; MEAN CORPUSCULAR HEMOGLOBIN 32.9 pg (27.0-31.0); MEAN CORPUSCULAR HGB CONC 36.1 g/dL (32.0-36.0); MEAN CORPUSCULAR VOLUME 91.2 fL (80.0-94.0); MEAN PLATELET VOLUME 9.4 fL (7.4-11.4); MONOCYTES # (AUTO) 0.8 10^3/uL (0.0-1.0); MONOCYTES % (AUTO) 9.7 %; NEUTROPHILS # (AUTO) 5.8 10^3/uL (1.5-6.6); NEUTROPHILS % (AUTO) 73.8 %; PLT - PLATELET COUNT 215 10^3/uL (130-450); RED CELL DISTRIBUTION WIDTH 11.4 % (12.0-15.0); WHITE BLOOD COUNT 7.8 x10^3/uL (4.8-10.8)
[2020-02-08 05:29] LABS: CALCIUM 8.9 mg/dL (8.5-10.3); CREATININE 1.1 mg/dL (0.6-1.2)
[2020-02-08] MEDS ORDERED: PANTOPRAZOLE 40 MG TABLET PO SCH (07:00)
[2020-02-08] MEDS: PRAMIPEXOLE 0.25 MG TABLET PO SCH (08:24)
[2020-02-08] MEDS: METOPROLOL SUCCINATE 50 MG TABLET PO SCH (08:24)
[2020-02-08] MEDS: guaiFENesin 600 MG TABLET PO SCH (08:25)
[2020-02-08] MEDS: POTASSIUM CHLORIDE 10 MEQ CAPSULE PO SCH (08:26)
[2020-02-08] MEDS: TAMSULOSIN 0.4 MG CAPSULE PO SCH (08:26)
[2020-02-08] MEDS: LIDOCAINE PATCH 5% TOP SCH (08:30)
[2020-02-08] MEDS ORDERED: A PO SCH (09:00)
[2020-02-08] MEDS ORDERED: TORSEMIDE 20 MG TABLET PO SCH (09:00)
[2020-02-08] MEDS ORDERED: FINASTERIDE 5 MG TABLET PO SCH (09:00)
[2020-02-08] MEDS ORDERED: ASPIRIN EC 81 MG TABLET PO SCH (09:00)
[2020-02-08] MEDS ORDERED: amLODIPine 5 MG TABLET PO SCH (09:00)
[2020-02-08] MEDS ORDERED: LORATADINE 10 MG TABLET PO SCH (09:00)
[2020-02-08] MEDS ORDERED: THIAMINE 100 MG TABLET PO SCH (09:00)
[2020-02-08] MEDS ORDERED: LOSARTAN 50 MG TABLET PO SCH (09:00)
[2020-02-08] MEDS ORDERED: ACETAMINOPHEN/CODEINE 300 MG/30 MG TABLET PO PRN (11:55)
[2020-02-08 12:17] VITALS: BP 138/78
--- NOTE | 2020-02-08 13:26 | Discharge Plan ---
Discharge Plan Problem Reviewed?: Yes Disposition: Home, Self Care Condition: Fair Prescriptions: Lidocaine Patch 5% [Lidoderm Patch] 1 patch TOP DAILY #30 patch Acetaminophen/Cod 300/30 [Tylenol #3] 1 tab PO QID #10 tablet Diet: Low Sodium Activity Restrictions: Activity as Tolerated Shower Restrictions: No Driving Restrictions: Yes (You are medically prohibited from driving until cleared by your doctor) Instruction Topics: Syncope, Syncope Causes, Syncope Heart Help Health Concerns: You were in the hospital in Observation status to evaluate fainting. You fell, presumably fainted, and have sustained trauma to your face. The first blood work showed that there was alcohol in your bloodstream. You underwent tests to evaluate for a cause: Your Echocardiogram showed strong and normal heart function, blood tests showed no heart attack, your heart monitor showed no episodes of dangerously slow or abnormal rhythms, your EKG does show the left bundle branch block which is old, your blood pressure does not drop when you stand. Your Electrocardiologist faxed to us the results of the monitor that you wore several weeks ago, and there were episodes where your heart was severely slow. Because of that finding plus this fainting spell, you need to see your Research Intern LOPEZ. An appointment to Dr. Thao has been made for you to be seen on this 02/11/2020 at 1200 with a check in at 1145 am. You are prohibited from driving until you are cleared by your PCP or High Heel Builder. If you should be stopped by police with this medical prohibition in place, you could be arrested. Please refrain from drinking alcohol, which may have contributed to this episode of fainting and falling. You have a fracture of your maxillary sinus and the surgeon thinks you probably have a bruised rib or it could be a nondisplaced rib fracture, that cannot yet be seen on x-ray or CAT scan. Two prescriptions for pain medicines, to take if needed, have been electronically sent to your pharmacy. Resume all your usual prehospital medications. Plan of Treatment: As above. Care Goals: Improvement in symptoms and stabilization are the goals. Assessment: Written instructions were provided at discharge as a reminder. Additional Instructions or Follow Up instructions: If you have new or worsening symptoms, call your PCP, High Heel Builder, or Electrocardiologist for advice, or come to the ER. No Smoking: If you smoke, Please STOP! Call for help. Follow-up with: Dao Thao MD [Physician No Access] -
--- NOTE | 2020-02-08 14:33 | DISCHARGE SUMMARY ---
Discharge Summary Admit Date: 02/07/20 Discharge Date: 02/08/20 Discharging Provider: Dr Radha Richter Primary Care Provider: Dr Murali Baxter, Dr Arya Thao (EP) Code Status: Attempt Resuscitation Condition at Discharge: Fair Discharge Disposition: 01 Home, Self Care - HPI History of Present Illness: From the admission H&P of Dr Jas Stauffer: Patient is a 69-year-old white male with medical history significant for coronary artery disease, hypertension, peripheral vascular disease, hyperlipidemia, GERD, restless leg syndrome and obstructive sleep apnea on CPAP/BIPAP at home who presented to the ED after a syncopal episode. He was brought in by EMS after his called 911 after she heard him fall and found him on the ground. He does not remember the incident. He denied any dizziness or lightheadedness prior to the episode. He has a left periorbital bruise as a result of his fall and a superficial laceration just above the left eye. Curr ently he complains of left, lower, lateral chest pain which is tender and reproducible. He reports worsening pain there with inhalation. He denies abdominal pain, nausea, vomiting, fever or chills. He has never had syncope before. Work-up in the ED showed an alcohol level of 205. The patient's t roponin was normal at 7.2. His EKG shows LBBB, which is old. In talking with the patient's , she explains that the patient had been drinking before the episode. She says he was celebrating. As a result of his presentation, he was presented for admission for further monitoring and pain management. In talking with the patient I was informed that he sees mill attendant Dr. Narvaez and an dba manager by the name Dr. Dao Thao in [place]. He states that he recently had an Echocardiogram done in the past 1 to 2 weeks. He reports having ZIO Patch monitor several weeks ago, ordered to evaluate PVCs and nothing severe was found. I reached Dr. Robert who was covering for his EP service, she explained that the reading from the ZIO patch was done a month ago. The patient was not wearing a monitor at the time of his incident last night. The patient was accepted to be transferred to [place], by the EP, but the patient declined. The patient is being placed in Observation to evaluate his syncope. - HOSPITAL COURSE Hospital Course: (1) Syncope and collapse We suspected a cardiac cause, given the LBBB on EKG and description of having a Zio patch and seeing an electrophysioloist and general mill attendant at [place]. The Vocational Rehabilitation Supervisor discussed with Dr. Robert who was covering for his EP provider at [facility]. She explained that the patient was on the Zio patch for 1 week a month ago and was not wearing one when he had the syncopal episode. Dr. Robert had earlier recommended that the patient be transferred to [facility] from the ED. After discussion with the patient and explaining the importance of him being transferred, he expressed understanding but declined to be transferred. He was placed on telemetry. No dysrhythmias were seen. Troponin labs were unremarkable. He underwent orthostatic vital sign checks which were without orthostasis. He had an Echo done which showed normal LV and RV function. He was discharged on his same meds and an appointment to see his Eletrophysiologist, Dr Thao, in 3 days, was secured for him. He was advised not to drive a vehicle until cleared to do so by his medical provider. (2) Bruised rib He had tenderness and crepitus over the left lateral 5-7th rib area. CT imaging did not report any fracture. A rib series was also done and was read as no fractures. A General Surgery consult was done by Dr Allyson Franklin, who confirmed the exam and suspected he had a hematoma over a bruised rib, or as yet unseen, non-displaced rib fracture. The patient was prescribed narcotic meds and Incentive Spirometry, and discharged home with these ordered. 3) Maxilary sinus fracture Imaging showed this finding. He had facial bruises. 4) LBBB This was seen on admission EKG and confirmed to be old. 5) Alcohol use He was ordered to have a [place] protocol, but showed no signs of alcohol withdrawal during this stay. There was a history of binging. Perhaps this episode of alcohol intake caused the syncope. Abstinence from alcohol was advised at discharge. (3) Coronary artery disease Patient was on Metroprolol XL 50 mg daily, baby aspirin, atorvastatin 40 mg daily and losartan. These meds were continued. (4) Hypertension Patient was on metoprolol, losartan and amlodipine. After evaluating for orthostasis, of which there was none, these meds were continued. (5) Hyperlipidemia On atorvastatin 40 mg p.o. daily which was continued. (6) BPH (benign prostatic hyperplasia) On tamsulosin 0.4 mg p.o. twice daily and finasteride 5 mg p.o. daily, which were continued. (7) COPD without exacerbation He was not in exacerbation. His inhaler was ordered to use prn. - ALLERGIES Allergies/Adverse Reactions: Allergies Allergy/AdvReac Type Severity Reaction Status Date / Time ampicillin Allergy Unknown Verified 02/07/20 11:14 hydralazine Allergy Unknown Verified 02/07/20 11:18 ketoconazole Allergy Unknown Verified 02/07/20 11:18 modafinil Allergy Unknown Verified 02/07/20 11:18 niacin Allergy Unknown Verified 02/07/20 11:18 Penicillins Allergy Unknown Verified 02/07/20 11:14 sulfamethoxazole Allergy Unknown Verified 02/07/20 11:18 [From Sulfamethoxazole-Trimethoprim] trimethoprim Allergy Unknown Verified 02/07/20 11:18 [From Sulfamethoxazole-Trimethoprim] SHERIDAN Inhibitors AdvReac Respiratory Verified 02/07/20 11:18 - MEDICATIONS Home Medications: Ambulatory Orders Medication Instructions Recorded Confirmed Amlodipine Besylate [Norvasc] 10 mg PO DAILY 02/07/20 02/07/20 Aspirin [Aspirin EC] 81 mg PO DAILY 02/07/20 02/07/20 Atorvastatin Calcium 40 mg PO QPM 02/07/20 02/07/20 Azelastine HCl 1 - 2 sprays FIDENCIO BID 02/07/20 02/07/20 Cholecalciferol [Vitamin D3] 5,000 unit PO DAILY 02/07/20 02/07/20 Finasteride [Proscar] 5 mg PO DAILY 02/07/20 02/07/20 Finasteride [Proscar] 5 mg PO DAILY 02/07/20 02/07/20 Fluticasone [Flonase] 2 spray FIDENCIO DAILY 02/07/20 02/07/20 Loratadine [Claritin] 10 mg PO DAILY 02/07/20 02/07/20 Losartan Potassium [Cozaar] 100 mg PO DAILY 02/07/20 02/07/20 Metoprolol Succinate [Toprol Xl] 50 mg PO BID 02/07/20 02/07/20 Montelukast [Singulair] 10 mg PO QPM 02/07/20 02/07/20 Omeprazole Magnesium 20 mg PO QDAC 02/07/20 02/07/20 Potassium Chloride [Klor-Con 10] 10 meq PO BIDWM 02/07/20 02/07/20 Pramipexole [Mirapex] 0.25 mg PO BID 02/07/20 02/07/20 Tamsulosin [Flomax] 0.4 mg PO BID 02/07/20 02/07/20 Tiotropium Br/Olodaterol HCl 2 puffs INH DAILY 02/07/20 02/07/20 [Stiolto Respimat Inhal What Cheer] Torsemide 20 mg PO DAILY 02/07/20 02/07/20 guaiFENesin [Mucinex] 400 mg PO BID 02/07/20 02/07/20 Acetaminophen/Cod 300/30 [Tylenol 1 tab PO QID #10 tablet 02/08/20 #3] Lidocaine Patch 5% [Lidoderm Patch] 1 patch TOP DAILY #30 patch 02/08/20 - PHYSICAL EXAM AT DISCHARGE General Appearance: positive: Alert, Mild distress (from pain due to facial trauma and rib pain) Eyes Bilateral: positive: Other (Purple bruises of L vikas-orbital area and nose) ENT: positive: No signs of dehydration, Purulent nasal drainage Neck: positive: Nml inspection, No JVD Respiratory: positive: No respiratory distress Cardiovascular: positive: Regular rate & rhythm, No murmur Abdomen: positive: Non-tender, No distention Skin: positive: Warm, Dry Extremities: positive: Non-tender, No pedal edema Neurologic/Psychiatric: positive: Oriented x3, Motor nml - LABS Result Diagrams: 02/08/20 05:13 02/08/20 05:13 - DIAGNOSTIC IMAGING Diagnostic Imaging Results: Final report reviewed - FOLLOW UP Follow Up: Keep appointment to see Dr Thao (EP, in [facility]) on 02/11/20 at noon. - TIME SPENT Time Spent in Discharge (Minutes): 30
== END 2020-02-08 15:15 | disposition home or self-care (01) ==
LOC: EDUNIT# → ED 02:03 → MS2 07:55
PROVIDERS: ADMIT Internal Medicine; ATTEND Internal Medicine
DX: R55 Syncope and collapse (principal); I44.7 Left bundle-branch block, unspecified; S20.219A Contusion of unspecified front wall of thorax, initial encounter; W18.30XA Fall on same level, unspecified, initial encounter; S02.40DA Maxillary fracture, left side, initial encounter for closed fracture; I25.10 Atherosclerotic heart disease of native coronary artery without angina pectoris; I10 Essential (primary) hypertension; E78.5 Hyperlipidemia, unspecified; J44.9 Chronic obstructive pulmonary disease, unspecified; I73.9 Peripheral vascular disease, unspecified; G47.33 Obstructive sleep apnea (adult) (pediatric); Z20.828 Contact with and (suspected) exposure to other viral communicable diseases; Z85.118 Personal history of other malignant neoplasm of bronchus and lung; Z90.2 Acquired absence of lung [part of]; F10.20 Alcohol dependence, uncomplicated; S01.81XA Laceration without foreign body of other part of head, initial encounter; K21.9 Gastro-esophageal reflux disease without esophagitis; N40.0 Benign prostatic hyperplasia without lower urinary tract symptoms; Z79.899 Other long term (current) drug therapy; Z87.891 Personal history of nicotine dependence
CPT/HCPCS: 36415; 70450; 70486; 71045; 71100; 71260; 72125; 72170; 74177; 80048; 80053; 80306; 82140; 83690; 84484; 85025; 85610; 90471; 90715; 93005; 93306; 96374; 96375; 96376; 99285; A9270; G0378; J1170; Q9967; U0004; 80320

== ENCOUNTER 2023-04-17 10:06 | Outpatient (CLI) | payer MEDICARE, OTHER ==
--- NOTE | 2023-04-17 10:36 | Sleep Patient Instructions ---
Sleep Center Visit Summary - Patient Visit Information Reason for Visit: Annual Visit - Patient Instructions Additional Instructions: You will continue with BiPAP therapy with pressure set at EPAP 4 cmH2O with 5-20 cmH2O pressure support. A supply prescription will be updated with your DME. A mask refitting for the full face mask was added. We encourage you to continue to try to lose weight. Please follow up with the sleep care office in 1 year. - Clinic Information Contact: [facility] [address] [place] [address] [email or web address] T: [phone]
--- NOTE | 2023-04-17 10:40 | SLEEP CARE CONSULTATION ---
Information from patient questionnaire entered by Tita White. I have reviewed and concur with the information entered by Tita White. This document represents the service I personally performed and the decisions made by me, Jenna Hurt ARNP. History of Present Illness Service Date and Time: 04/17/2023 1006 Previous diagnosis: Severe, Obstructive Sleep Apnea-Hypopnea Syndrome, Central Sleep Apnea-Hypopnea Syndrome AHI: 40.9 (in 10/2011) Reason for follow up: annual (LAST SEEN 04/2022) Equipment type: CPAP (RESMED AirCurve 10 ASV; s/u 04/04/2021) Equipment obtained from: Other ([employer], getting supplies) Mask style: Full face Mask brand: [employer] (Rima Full) Backup mask available: Yes Last cushion change: 3-4 weeks Prior sleep studies: Yes Year and Where: [facility] 2012 HPI additional information: AGNES GARCIA was diagnosed to have severe, AHI 40.9, obstructive/central sleep apnea-hypopnea syndrome and returned today for BIPAP ASV therapy annual follow- up. Sleep Study - Results Prior sleep studies: Yes Year and Where: HERE CPAP Compliance Data - Data Reviewed with Patient Average duration of nightly device use: 7 HRS 22 MINS Compliance rate %: 99 (04/16/22-04/15/23; 364/365 days used) Current pressure setting (cmH2O): EPAP 4 with 5-20 pressure support Average residual AHI: 0.3 Hypopnea: 0.3 Average large leak: 0.4 L/min On Oxygen: Yes (3 Liters) Oxygen usage: Continuous Subjective Patient concerns: reports: mask discomfort (pushes on nose), dry mouth, nose, throat. denies: aerophagia, air blowing in eyes, mask leak noise, condensation in mask/hose, nasal congestion, epistaxis Observed to snore while using device: No Current pressure setting perceived as: comfortable On therapy, patient: reports: sleeping better, awakening more refreshed, being more awake and alert during the day, more rested overall. denies: drowsiness while driving Initial Crapo Sleepiness Scale score: 7 (03/26/22) Current Crapo Sleepiness Scale score: 9 (04/17/23) Allergies and Home Medications Known drug allergies: Yes (as listed) Drug allergies reviewed: Yes Home medication list reviewed: Yes (Methocarbamol) Allergy and home medication list: Allergies ampicillin Allergy (Verified 04/16/23 12:57) Unknown hydralazine Allergy (Verified 04/16/23 12:57) Unknown ketoconazole Allergy (Verified 04/16/23 12:57) Unknown modafinil Allergy (Verified 04/16/23 12:57) Unknown niacin Allergy (Verified 04/16/23 12:57) Unknown Penicillins Allergy (Verified 04/16/23 12:57) Unknown sulfamethoxazole [From Sulfamethoxazole-Trimethoprim] Allergy (Verified 04/16/23 12:57) Unknown trimethoprim [From Sulfamethoxazole-Trimethoprim] Allergy (Verified 04/16/23 12:57) Unknown SHERIDAN Inhibitors Adverse Reaction (Verified 04/16/23 12:57) Respiratory Review of Systems Review of systems same as previous: No (C4,5,6 INJECTIONS) Physical Exam Vital signs obtained and entered by: TITA Verma MA Blood Pressure: 176/85 (LEFT ARM) Cuff size: regular Heart Rate: 83 O2 Saturation: 92 Height: 5 ft 10 in Weight: 219 lb 6.4 oz (PER PT) Body Mass Index: 31.4 BMI Classification: Obese Impression and Plan 1. Obstructive/Central Sleep Apnea-Hypopnea Syndrome, severe, with good treatment compliance and good apnea control. On BiPAP therapy, the patient has better sleep quality and is more rested overall. Patient is getting some mass discomfort from the Swati for pushing up under his nose. He would like to try a fullface mask that went over the bridge of his nose. I will add a mask fitting for the fullface mask to his prescription for updated supplies. I am also including the tubing with the oxygen adapter per his request so that he can connect his oxygen tubing into his BiPAP. Patient has significant improvement of their sleep apnea and is satisfied with current CPAP therapy. Patient denies problems with oral dryness, nasal congestion, epistaxis, skin irritation or aerophagia. Patient's apnea severity and rationale for treatment to reduce apnea, improve sleep quality and reduce cardiovascular and cerebrovascular events was reviewed. I also reviewed the benefit of consistent device use of BIPAP for hypertension, cardiac disease (CHD), arrhythmia and COPD. 2. Obesity, unspecified. Currently patients BMI is 31.4. Obesity increases the risk of apnea, BIPAP pressure requirements and overall health risks especially cardiovascular and diabetes. Thus patient is advised to lose weight. 3. Hypoxemia. Patient with history of COPD and continuous oxygen supplementation. He is on 3L/NC 22/10. * Continue BiPAP ASV pressure at EPAP 4 cmH2O with 5-20 cmH2O pressure support * Update supply prescription with tubing that has oxygen nipple attachment * Notify me if snoring with mask or feeling that the pressure is too much or too little * Attempt to lose weight * Call this office if any problems using CPAP * Return for follow up in 12 months, or sooner if concerns arise Counseling Topics: Spare mask, Weight loss health impact Prescriptions: Device supplies Follow up with Sleep Care in: 1 year Visit Type: In Office Time Spent with Patient (minutes): 28 Provider Statement: I spent 100% of the Face to Face Visit with the patient with greater than 50% spent counseling the patient and coordination of care.
[2023-04-17 10:44] VITALS: BP 176/85; O2SAT 92
== END 2023-04-17 10:07 | disposition home or self-care (01) ==
LOC: SC 10:06
PROVIDERS: ATTEND Nurse Practitioner Family
DX: G47.33 Obstructive sleep apnea (adult) (pediatric) (principal); J44.9 Chronic obstructive pulmonary disease, unspecified; Z99.81 Dependence on supplemental oxygen; E66.9 Obesity, unspecified; Z68.31 Body mass index [BMI] 31.0-31.9, adult
CPT/HCPCS: 99213; G0463; 99212

== ENCOUNTER 2023-12-03 10:06 | Outpatient (CLI) | payer MEDICARE, OTHER ==
--- NOTE | 2023-12-04 09:15 | CT Report ---
PROCEDURE: Lumbar Spine WO INDICATIONS: SPINAL STENOSIS TECHNIQUE: Noncontrast 3 mm thick sections acquired from the T12 level to the sacrum. Sagittal and coronal refo rmats were constructed. For radiation dose reduction, the following was used: automated exposure co ntrol, adjustment of mA and/or kV according to patient size. COMPARISON: CT abdomen/pelvis 02/07/2020. FINDINGS: Image quality: Beam hardening artifact is seen at the levels of the spinal hardware and spinal stimul ator device, which arises evaluation at these levels. Diagnostic information is obtained. Bones: Postsurgical changes are seen from right hemilaminectomy and posterior fixation at the L4-5 l evel. Bilateral pedicle screws and interbody rods and a disc spacer are present and appear to be inta ct and satisfactorily positioned. There is normal bony alignment. No acute vertebral body compressio n fractures. No suspicious lytic or blastic bony lesions. No pars defects. T12-L1: Mild disc bulging. No central spinal canal stenosis or neuroforaminal narrowing. L1-L2: Mild disc bulging. No significant spinal canal stenosis or neuroforaminal narrowing. L2-L3: Mild disc bulging, which results in mild narrowing of the neural foramina without significa nt spinal canal stenosis. L3-L4: Mild circumferential disc bulging and moderate bilateral facet hypertrophy with buckling of the ligamentum flavum. Findings result in mild narrowing of the spinal canal and mild bilateral neura l foraminal narrowing. L4-L5: Status post hemilaminectomy with decompression of the spinal canal. There is mild right and moderate left neural foraminal narrowing. L5-S1: Circumferential disc bulging with buckling of the ligamentum flavum and moderate bilateral f acet hypertrophy. Findings result in moderate bilateral neural foraminal narrowing without significan t spinal canal stenosis. Soft tissues: No retroperitoneal masses or hematomas. Visualized aorta is normal in caliber. Spina l stimulator device is seen in the subcutaneous tissues of the left lower back with leads entering th e spinal canal just above the [id number] of this exam. Moderate aortic atherosclerotic calcificati ons. IMPRESSION: 1.Postsurgical changes at L4-5 with decompression of the spinal canal. Hardware appears intact. No ac sac and [place] osseous abnormality. 2.Multilevel mild to moderate degenerative disc disease and facet hypertrophy as described in detail in the body of the report. No high-grade spinal canal stenosis or high-grade neuroforaminal narrowing is seen. Reviewed by: Severo Hsu MD on 12/04/2023 9:13 AM PDT Approved by: Severo Hsu MD on 12/04/2023 9:13 AM PDT Station ID: [id number]
== END 2023-12-03 10:07 | disposition home or self-care (01) ==
LOC: DI 10:06
PROVIDERS: ATTEND Student in an Organized Health Care Education/Training Program
DX: M51.36 Other intervertebral disc degeneration, lumbar region (principal); M51.16 Intervertebral disc disorders with radiculopathy, lumbar region; M51.37 Other intervertebral disc degeneration, lumbosacral region; Z98.890 Other specified postprocedural states